=== PATIENT | male | born 1975 | race Caucasian/White ===

== ENCOUNTER → 2017-01-24 | Outpatient (CLI) | payer OTHER ==
--- NOTE | 2017-01-24 12:21 | DI ---
VENOUS DOPPLER ULTRASOUND OF BOTH LOWER EXTREMITIES, 01/24/2017 9:58 AM: Clinical History: Bilateral leg pain. The previous ultrasound of the left leg revealed deep vein thro mbosis. The patient has a history of pulmonary embolism. Previous Exam: Comparison is made with a venous Doppler ultrasound of the left lower extremity from . Technique: 2D real-time imaging is supplemented with color Doppler ultrasound. Compression and augmen tation maneuvers were performed. The deep venous system from the groin to the popliteal fossa for both legs is normal. The greater sap henous veins are also normal. Reading: Negative venous Doppler ultrasound of both lower extremities for deep vein thrombosis. The clot previ ously visualized in the distal superficial femoral vein of the left lower extremity has resolved comp letely.
== END ==
LOC: US 09:49
PROVIDERS: ATTEND Specialist
DX: M79.662 Pain in left lower leg (principal); M79.661 Pain in right lower leg; Z86.718 Personal history of other venous thrombosis and embolism
CPT/HCPCS: 93970